=== PATIENT | male | born 1955 | race Caucasian/White ===

== ENCOUNTER → 2019-05-08 | Outpatient (CLI) | payer MEDICARE, OTHER | LOC: M.RAD 14:32 | DX: J34.89 Other specified disorders of nose and nasal sinuses (principal); R09.89 Other specified symptoms and signs involving the circulatory and respiratory systems ==

== ENCOUNTER → 2021-02-17 | Outpatient (CLI) | payer OTHER | LOC: M.CT 13:31 | PROVIDERS: ATTEND Internal Medicine | DX: Z13.6 Encounter for screening for cardiovascular disorders (principal); I25.10 Atherosclerotic heart disease of native coronary artery without angina pectoris ==